=== PATIENT | male | born 1935 | race Caucasian/White ===

== ENCOUNTER 2019-06-30 05:47 | Day surgery (SDC) | payer MEDICARE, BC ==
[2019-06-24 15:10] VITALS: BMI 20.7
[~2019-06-30 05:47] MED LIST: LACTATED RINGERS 1,000 ML IV SCH; LIDOCAINE 1% 20 ML VIAL (10MG/ML) FOR IV START INTRADERMA PRN
[2019-06-30 06:27] VITALS: TEMP 98
[2019-06-30] MEDS ORDERED: PROPOFOL 10 MG/ML 20 ML VIAL IV ONE (07:04)
[2019-06-30] MEDS ORDERED: LIDOCAINE 1% INJ 10MG/ML (20 ML MDV) ONE (07:04)
[2019-06-30 07:47] VITALS: BP 97/52; PULSE 52; RESP 18
[2019-06-30 09:08] LABS: Basophils # (A) 0.1 k/uL (0-0.2); Basophils % (A) 1 %; Eosinophils # (A) 0.2 k/uL (0-0.7); Eosinophils % (A) 2 %; HGB 11.8 gm/dL (13.0-17.5); Lymphocytes # (A) 1.1 k/uL (1.0-4.8); Lymphocytes % (A) 16 %; MCH 40.3 pg (25.0-35.0); MCHC 32.7 g/dL (31.0-37.0); MCV 123.2 fL (80.0-100.0); Macrocytosis Marked; Mean Platelet Volume 10.3; Monocytes # (A) 0.8 k/uL (0-1.0); Monocytes % (A) 12 %; Neutrophils # (A) 4.7 k/uL (1.3-7.7); Neutrophils % (A) 68 %; Platelet Count 199 k/uL (150-450); RBC 2.93 m/uL (4.30-5.90); Reticulocyte % 2.2 % (0.5-2.0); WBC 6.9 k/uL (3.8-10.6)
--- NOTE | 2019-06-30 09:56 | PCN ---
PROCEDURE NOTE PROCEDURE: Bone marrow aspirate and biopsy. SITE: Right iliac crest. ANESTHESIA: Local with IV systemic sedation. DETAILS: Utilizing sterile technique, the skin overlying the right iliac crest was prepared with alcohol. After adequate sterile draping, local anesthesia and systemic sedation, a size 11, 4-inch Jamshidi needle was utilized to access the periosteum with ease. A total of 15 mL of aspirate and a crushed 7 mm bone core biopsy were obtained. The patient tolerated the procedure well. TOTAL BLOOD LOSS: Less than 1 mL. RESULTS: Pending. MMODL / IJN: [id number] /
== END 2019-06-30 08:17 | disposition home or self-care (01) ==
LOC: OR 05:47
PROVIDERS: ATTEND Internal Medicine Hematology & Oncology
DX: D53.9 Nutritional anemia, unspecified (principal); C90.00 Multiple myeloma not having achieved remission; I25.10 Atherosclerotic heart disease of native coronary artery without angina pectoris; I48.91 Unspecified atrial fibrillation; E78.5 Hyperlipidemia, unspecified; K21.9 Gastro-esophageal reflux disease without esophagitis; N40.0 Benign prostatic hyperplasia without lower urinary tract symptoms; J43.9 Emphysema, unspecified; Z87.891 Personal history of nicotine dependence; Z86.73 Personal history of transient ischemic attack (TIA), and cerebral infarction without residual deficits; Z79.02 Long term (current) use of antithrombotics/antiplatelets; Z79.01 Long term (current) use of anticoagulants; Z79.899 Other long term (current) drug therapy; Z95.1 Presence of aortocoronary bypass graft; Z90.89 Acquired absence of other organs; Z80.0 Family history of malignant neoplasm of digestive organs; Z80.8 Family history of malignant neoplasm of other organs or systems
CPT/HCPCS: 85025; 85045; 38222; J2001; J2704